=== PATIENT | male | born 1970 | race Two or more races ===

== ENCOUNTER 2025-01-08 10:08 | Inpatient (IN) | payer OTHER, SELFPAY ==
--- NOTE | 2025-01-08 16:03 | PC.NURSE ---
Resident came in accompanied by EMS/paramedics on [facility] , his eyes was open and lethargic, resident V/S before transfer @0800 was axilary temp.36.9, HR, 94, resp.rate 23, saturation rate 98% BP.100/55, and resident arrived 1008, v/s was temp. 97.3, RR, 19, Pulse 46, saturation rate 77-82, was notified and order to transfer to [facility].
--- NOTE | 2025-01-08 18:35 | PC.NURSE ---
Admitted resident from [facility] in [place] at around 10:08. Awake and looks lethargic. This ghost writer was trying to talk to the resident by calling his first name but doesn't track at all. While doing assessment, noticed that resident became more lethargic. Resident on mechanical ventilator, unable to obtain saturation, suctioned as needed. V/S were take as follows: 63/33, 19, 46. RT came in and increased resident's FIO2 at 100% and noted to have O2 saturation of 77%-82% afterwards. Charge nurse notified Dr Meyer and ordered to transfer resident to ER. Resident was sent out to ER at around 11:54 . Family was notified by the charge nurse.
== END 2025-01-08 10:29 | disposition other institution (70) | DRG 42 ==
PROVIDERS: Admitting Provider Specialist; Visit Provider Specialist
DX: G12.21 Amyotrophic lateral sclerosis (principal); Z86.73 Personal history of transient ischemic attack (TIA), and cerebral infarction without residual deficits; I25.2 Old myocardial infarction; J96.10 Chronic respiratory failure, unspecified whether with hypoxia or hypercapnia; Z93.1 Gastrostomy status; Z86.718 Personal history of other venous thrombosis and embolism; Z79.01 Long term (current) use of anticoagulants
CPT/HCPCS: 36600; 80053; 82803; 85025; 87077; 87186; 87205; 93005

== ENCOUNTER 2025-01-08 11:59 | Emergency (ER) | payer OTHER, SELFPAY ==
[2025-01-08] VITALS (72 sets, daily range): BP systolic 62–124; BP diastolic 35–80; PULSE 46–109; RESP 18–35; TEMP 33.3–36.8; O2SAT 91–100; BMI 16.6
--- NOTE | 2025-01-08 10:29 | EKG_ITS ---
[facility] Test Date: 2025-01-08 Pat Name: HYUN RAMIREZ Department: Room: [facility] Gender: Male Builder'S Labourer: : 1970 Requested By: Sushant Meyer Order Number: [id number] Reading MD: Sushant Meyer Measurements Intervals [place] Rate: 64 P: 57 WV: 152 QRS: 79 QRSD: 126 T: 86 QT: 395 QTc: 408 Interpretive Statements SINUS RHYTHM POSSIBLE RIGHT VENTRICULAR CONDUCTION DELAY [RSR (QR) IN V1/V2] NONSPECIFIC T-WAVE ABNORMALITY No previous ECG available for comparison /store/S0/[id number]
[2025-01-08 10:53] LABS: Base Excess 4 (-3-3); HCO3 32 mEq/L (20-26); Inspired Oxygen, FIO2 40 %; O2 Saturation 91 % (91-98); PCO2 63 mmHg (32.0-48.0); PO2 64 mmHg (83-108); pH, Arterial 7.31 (7.35-7.45)
[2025-01-08 10:54] LABS: Allen Test Performed/OK; Puncture Site Left Radial
[2025-01-08] MEDS: SODIUM CHLORIDE 0.9% 1000 ML 1,000 ML 999 ML IV (12:05)
--- NOTE | 2025-01-08 12:13 | XR_ITS ---
EXAMINATION: AP chest single view TECHNIQUE: AP portable supine chest single view Date and time: January 08, 2025, 12:31 p.m. INDICATIONS: Shortness of breath today FINDINGS: COPD with significant hyperexpansion Extensive bilateral pneumonia severe at the lung bases Cavitary appearing parenchymal disease in the right upper lobe Tracheostomy tube tip 7.4 cm above rafael. Normal heart size Right arm dual-lumen PICC line tip SVC IMPRESSION: COPD Extensive bilateral pneumonia, cavitary in the right upper lobe
[2025-01-08] MEDS: Norepinephrine/D5W 8mg/250ml 8 MG/250 ML BAG 5.358 MG IV (12:15)
[2025-01-08 12:43] LABS: Lactate (Lactic Acid) 1.8 mMol/L (0.4-2.0)
[2025-01-08 12:49] LABS: Basophils # (Auto) 0.1 Thou/mm3 (0.0-0.2); Basophils % (Auto) 0 % (0-2.5); Eosinophils # (Auto) 0.0 Thou/mm3 (0.0-0.5); Eosinophils % (Auto) 0 % (0-10); Hematocrit 20.7 % (41.0-53.0); Immature Granulocytes Auto 0.27 Thou/mm3 (0.00-0.00); Lymphocytes # (Auto) 1.2 Thou/mm3 (1.0-4.8); Lymphocytes % (Auto) 7 % (10-50); Mean Corpuscular HGB Conc 32.9 g/dl (31.0-37.0); Mean Corpuscular Hemoglobin 27.9 pg (25.0-35.0); Mean Corpuscular Volume 85 fL (80-100); Monocytes # (Auto) 0.3 Thou/mm3 (0.0-0.8); Monocytes % (Auto) 2 % (0-12); Neutrophils # (Auto) 15.8 Thou/mm3 (1.8-7.7); Neutrophils % (Auto) 90 % (37-80); Nucleated Red Blood Cell # 0.19 Thou/mm3 (0.00-0.00); Nucleated Red Blood Cell % 1 /100 WBC (0); Platelet Count 424 Thou/mm3 (140-440); RDW Standard Deviation 45.3 fL (35.1-43.9); Red Blood Count 2.44 Miln/mm3 (4.50-5.90); White Blood Count 17.6 Thou/mm3 (3.8-10.6)
[2025-01-08 12:57] LABS: Hemoglobin 6.8 g/dL (13.5-16.0)
[2025-01-08 13:03] LABS: D-Dimer 2950 ng/mL (<600)
--- NOTE | 2025-01-08 13:03 | PD.EDADULT ---
ED General RME/HPI General Chief complaint: Altered Mental Status Stated complaint: SOB Time Seen by Provider: 01/08/25 12:04 Arrival date/time: 01/08/25 11:59 RME / HPI RME / HPI narrative: Jostin is a 54 y/o male with PMHx of ALS,HFrEF (? EF ~10%), cardiac arrest, pulmonary embolus, Afib (was on Eliquis), respiratory failure s/p trachestomy, PEG placement, CVA (L MCA) who comes in for evaluation after being sent from [place] to [facility] subacute. Of note patient had extensive stay at [facility] in which he had had multiple events including cardiac arrest, pulmonary embolus, CVA, tracheostomy and PEG placement. According to family, patient was living in [place] and had some caretakers, however was able to to carry out living activities. Family also wants full treatment for patient at this time. Patient came into the ED hypotensive, MAP 45. Patient was post to get blood transfusion prior to her arrival, however is unsure if he on that. History limited at this time and is reviewed from paper chart. Related Data Previous Rx's ?Medication ?Instructions ?Recorded Meropenem 1 g IV BID for infection in blood 01/08/25 7 days amiodarone 200 mg tablet 200 mg G-tube BID #60 tabs 01/08/25 aspirin 81 mg chewable tablet 81 mg G-tube QDAY to prevent blood 01/08/25 clots #30 tabs bisacodyl 10 mg rectal suppository 10 mg MA PRN PRN No BM Per Bowel 01/08/25 (Dulcolax (bisacodyl)) Management Protocol 366 days #12 ea enoxaparin 40 mg/0.4 mL 40 mg (0.4 mL) SCi BID 14 days 01/08/25 subcutaneous syringe #5.6 mL famotidine 20 mg tablet 20 mg G-tube DAILY for Gerd #30 01/08/25 tabs ipratropium 0.5 mg-albuterol 3 mg 3 ml INH Q2HR PRN Wheezing 30 days 01/08/25 (2.5 mg base)/3 mL nebulization #90 mL soln magnesium hydroxide 400 mg/5 mL 30 ml G-tube PRN PRN Constipation 01/08/25 oral suspension (Milk of Magnesia) 366 days #355 mL metoprolol tartrate 50 mg tablet 50 mg G-tube BID Hpertension #60 01/08/25 tabs polyethylene glycol 3350 17 gram 17 g G-tube PRN PRN No BM Per 01/08/25 oral powder packet Bowel Management Protocol 366 days #14 ea sodium phosphates 19 gram-7 133 ml MA PRN PRN No BM Per Bowel 01/08/25 gram/118 mL enema (Fleet Enema) Management Protocol 366 days #133 mL Allergies Allergy/AdvReac Type Severity Reaction Status Date / Time No Known Allergies Allergy Verified 01/08/25 12:07 Review of Systems Review of Systems Narrative Review of Systems: ROS limited at this time as patient has tracheostomy ED Exam Narrative Physical exam: General: AAOx1, tracheostomy, anorexic HEENT: Pinpoint pupils Cardiovascular: S1, S2, radial pulses +2 bilat, RRR Pulmonary: Mechanical breath sounds, tidal volume 450, respiratory rate 28, FiO2 of 70 GI: PEG tube Extremities: No presence of trace or pitting edema in lower extremities bilaterally, dorsalis pedis pulses +2 bilaterally Skin: Area of superficial area exposed of skin on back, linear and covered in bandage. Neuro: AAOx1, pinpoint pupils Course Quality Measures none Orders Category Date Time Status Bedside COVID-19 Antigen Test NOW Care 01/08/25 12:[address] Screening NOW Care 01/08/25 14:11 Active EKG (ED ONLY) *Do not use* NOW Care 01/08/25 12:04 Completed Bonner [Urinary Catheter] QS Care 01/08/25 13:11 Active Initiate Warming Therapy X1 Care 01/08/25 13:52 Active Insert IV NOW Care 01/08/25 12:04 Active May Access Central Line NOW Care 01/08/25 12:30 Ordered Post Transfusion H&H PRN Care 01/08/25 13:02 Active Transfuse,blood/blood products NOW Care 01/08/25 13:02 Active Consult to Design Engineering Intern Stat Cons 01/08/25 16:57 Ordered Referral - Steward Dishwasher Stat Cons 01/08/25 16:[address] angio chest Stat Exams 01/08/25 14:[address] head/brain wo con Stat Exams 01/08/25 14:31 Completed EKG (ED Only) Stat Exams 01/08/25 12:04 Ordered XR chest 1V portable Stat Exams 01/08/25 12:13 Completed ABG [Arterial Blood Gas] Stat Lab 01/08/25 13:09 Completed ABG [Arterial Blood Gas] Stat Lab 01/08/25 14:47 Completed ABG [Arterial Blood Gas] Stat Lab 01/08/25 16:17 Completed Blood Culture (Lab) Stat Lab 01/08/25 12:24 Received CBC Stat Lab 01/08/25 12:24 Completed CMP [Comprehensive Metabolic Panel] Stat Lab 01/08/25 12:24 Completed D-Dimer Stat Lab 01/08/25 12:24 Completed Influenza A & B Rapid Panel Stat Lab 01/08/25 13:59 Completed Lactic Acid [Lactate (Lactic Acid)] Stat Lab 01/08/25 12:24 Completed Lipase Stat Lab 01/08/25 12:24 Completed Mag [Magnesium] Stat Lab 01/08/25 12:24 Completed Path Review Blood Smear Stat Lab 01/08/25 12:24 Completed Procalcitonin Stat Lab 01/08/25 12:24 Completed Troponin I Stat Lab 01/08/25 12:24 Completed Type and Screen Stat Lab 01/08/25 13:04 Completed Urinalysis, C/S if Indicated Stat Lab 01/08/25 14:00 Completed prbc [Red Blood Cells] Stat Lab 01/08/25 13:04 Completed ALBUTEROL RT 0.5ml [Proventil Rt 0.5ml] Med 01/08/25 15:03 Discontinued 5 mg .ROUTE .STK-MED ONE ALBUTEROL RT 0.5ml [Proventil Rt 0.5ml] Med 01/08/25 15:03 Discontinued 5 mg INH X1 ONE Hydrocortisone Sod Succ Inj [SoluCORTEF Inj] Med 01/08/25 21:00 Active 50 mg IV Q6HR Hydrocortisone Sod Succ Inj [SoluCORTEF Inj] Med 01/08/25 15:14 Discontinued 50 mg IV X1 ONE Meropenem Inj [Merrem Inj] 1,000 mg Med 01/08/25 15:21 Discontinued SODIUM CHLORIDE 0.9% (Popper) [Ns 0.9% (P)] 50 ml IV X1 Norepinephrine/D5W 8mg/250ml [Levophed in D5W 8mg/250ml Med 01/08/25 12:11 Discontinued ] 8 mg in 250 ml IV 0.05 mcg/kg/min Norepinephrine/D5W 8mg/250ml [Levophed in D5W 8mg/250ml Med 01/08/25 12:19 Active ] 8 mg in 250 ml IV 0.05 mcg/kg/min Ringers Lactated 1000 ml [Lactated Ringers] 1,000 ml Med 01/08/25 12:04 Discontinued IV 999 mls/hr Sodium Bicarb 8.4% SYR Med 01/08/25 13:29 Discontinued 50 ml IV X1 ONE Sodium Chloride 0.9% 1000 ml [Ns] 1,000 ml Med 01/08/25 12:40 Discontinued IV 999 mls/hr Sodium Chloride Rt Audrey 0.9% [NS Rt Audrey 0.9%] Med 01/08/25 15:03 Active 3 ml INH PRN PRN Vancomycin Pharmacy to Dose Med 01/08/25 15:30 Active 1 each IV QDAY Vancomycin/Water 1250 mg Ivpb 250 ml Med 01/08/25 15:30 Discontinued IV X1 Vasopressin in Ns Ivpb [Vasostrict/Ns Ivpb] Med 01/08/25 15:13 Active 20 unit in 100 ml IV 0.03 unit/min Volume Ventilator Routine RT 01/08/25 12:08 Active Vital Signs Vital signs: Vital Signs Pulse Rate 48 L 01/08/25 12:07 Respiratory Rate 22 H 01/08/25 12:07 Blood Pressure 69/35 L 01/08/25 12:07 Pulse Oximetry (%) 91 L 01/08/25 12:07 Oxygen Delivery Method Mechanical Ventilation 01/08/25 12:07 Fraction of Inspired Oxygen 45 01/08/25 12:07 Discharge Plan Plan Patient Disposition: [facility] Pt Being Transferred to: [facility] Service Needed for Transfer: Neurosurgery Discharge Disposition comment: Acute Hemorrhage seen on CT Prescriptions/Referrals Prescriptions/Med Rec: No Action famotidine 20 mg tablet 20 mg G-tube DAILY Qty: 30 11RF metoprolol tartrate 50 mg tablet 50 mg G-tube BID Qty: 60 11RF Label Comments: Hold for sbp less than 110 and HR less than 60 aspirin 81 mg tablet,chewable 81 mg G-tube QDAY Qty: 30 11RF Meropenem 1 g IV BID 7 Days 0RF ipratropium-albuterol 0.5 mg-3 mg(2.5 mg base)/3 mL solution for nebulization 3 ml INH Q2HR PRN (Reason: Wheezing) 30 Days Qty: 90 0RF polyethylene glycol 3350 17 gram powder in packet 17 g G-tube PRN PRN (Reason: No BM Per Bowel Management Protocol) 366 Days Qty: 14 0RF Label Comments: Administer as needed if 2nd round bowel protocol ineffective. Rx Instructions: Mix with 4oz of water before giving. Hold tube feeding for 30 minutes after administration. Notify provider if no results from Miralax. magnesium hydroxide [Milk of Magnesia] 400 mg/5 mL suspension 30 ml G-tube PRN PRN (Reason: Constipation) 366 Days Qty: 355 0RF Rx Instructions: CONC: 400MG/5ML bisacodyl [Dulcolax (bisacodyl)] 10 mg suppository 10 mg MA PRN PRN (Reason: No BM Per Bowel Management Protocol) 366 Days Qty: 12 0RF Rx Instructions: Administer as needed on 6th shift, if MOM ineffective. Fleet Enema 19-7 gram/118 mL enema 133 ml MA PRN PRN (Reason: No BM Per Bowel Management Protocol) 366 Days Qty: 133 0RF Label Comments: If Dulcolax is ineffective on 3rd day / 7th shift, give Fleets enema per Bowel Management Protocol. Notify MD if no results from Enema. amiodarone 200 mg tablet 200 mg G-tube BID Qty: 60 11RF Rx Instructions: *Hold if HR less than 60, or SBP less than 100 enoxaparin 40 mg/0.4 mL syringe 40 mg SCi BID 14 Days Qty: 5.6 0RF Referrals: No Primary/Family,Physician [Primary Care Provider] - In 1 week Problem List Clinical Impression: Acute intracerebral hemorrhage Patient/Caregiver Discharge Instructions Print Language: [place] Stand Alone Forms: Cathy Award Info., Patient Portal Info Letter MDM Clinical Information Other: 1200: Sepsis alert, initiated broad labs, chest x-ray, gave 1 L fluid and started IV Levophed due to hypotension 1245: Initiated blood transfusion patient's hemoglobin is 6.8. Ordered 2 units of PRBCs 1310: Ordered additional ABG and change ventilator settings to respiratory of 28 and tidal volume 455 as patient had ABG of pCO2 of 120 and pH of 7 1445: Consulted ICU who came to evaluate patient. Ordered head CT and chest CTA for workup of pulmonary emboli and stroke/hemorrhage. Initiated Meropenem IV and Vancomycin IV. Repeat ABG shows pH 7.08, pCO2 108. 1600: CT head shows acute hemorrhage in the left MCA, chest CTA shows pulmonary emboli and filling defect of RLL. Unsure of patient's last known well time and thus will not call stroke alert. ABG shows pH 7.16, PCO2 85. Pt will need to stop taking any blood thinners, including his Lovenox 40 mg BID in the setting of acute hemorrhage (hemorrhagic conversion of his infarct L MCA) 1655: Spoke with emergency medicine physician at [facility], Dr. Ann, who accepts patient for admission for neurosurgical evaluation. 1715: Spoke with family member, Natty, sister, who provides consent for transfer and for neurosurgical intervention at [facility]. Medication Administration(s) Medication Administration History Hydrocortisone Sodium Succinate (Hydrocortisone Sod Succ Inj 100 Mg 2 Ml Vial) 50 mg IV Q6HR EDNA Stop: 02/07/25 20:59 Norepinephrine/Dextrose (Levophed In D5w 8mg/250ml) 8 mg in 250 mls @ 5.358 mls/hr IV .Q24H PRN; Protocol PRN Reason: PER PROTOCOL Stop: 02/07/25 12:18 Last Titration: 01/08/25 16:00 Dose: 0.33 mcg/kg/min, 35.363 mls/hr Documented By: Titration: 01/08/25 15:10 Dose: 0.33 mcg/kg/min, 35.363 mls/hr Documented By: Titration: 01/08/25 15:05 Dose: 0.33 mcg/kg/min, 35.363 mls/hr Documented By: Titration: 01/08/25 15:00 Dose: 0.31 mcg/kg/min, 33.22 mls/hr Documented By: Titration: 01/08/25 14:55 Dose: 0.29 mcg/kg/min, 31.077 mls/hr Documented By: Titration: 01/08/25 14:50 Dose: 0.27 mcg/kg/min, 28.934 mls/hr Documented By: Titration: 01/08/25 14:00 Dose: 0.25 mcg/kg/min, 26.79 mls/hr Documented By: Titration: 01/08/25 13:40 Dose: 0.25 mcg/kg/min, 26.79 mls/hr Documented By: Titration: 01/08/25 13:35 Dose: 0.25 mcg/kg/min, 26.79 mls/hr Documented By: Titration: 01/08/25 13:05 Dose: 0.23 mcg/kg/min, 24.647 mls/hr Documented By: Titration: 01/08/25 13:00 Dose: 0.23 mcg/kg/min, 24.647 mls/hr Documented By: Titration: 01/08/25 12:55 Dose: 0.21 mcg/kg/min, 22.504 mls/hr Documented By: Titration: 01/08/25 12:50 Dose: 0.19 mcg/kg/min, 20.361 mls/hr Documented By: Titration: 01/08/25 12:45 Dose: 0.17 mcg/kg/min, 18.218 mls/hr Documented By: Titration: 01/08/25 12:40 Dose: 0.15 mcg/kg/min, 16.074 mls/hr Documented By: Titration: 01/08/25 12:35 Dose: 0.13 mcg/kg/min, 13.931 mls/hr Documented By: Titration: 01/08/25 12:30 Dose: 0.11 mcg/kg/min, 11.788 mls/hr Documented By: Titration: 01/08/25 12:25 Dose: 0.09 mcg/kg/min, 9.645 mls/hr Documented By: Titration: 01/08/25 12:20 Dose: 0.07 mcg/kg/min, 7.501 mls/hr Documented By: Admin: 01/08/25 12:15 Dose: 0.05 mcg/kg/min, 5.358 mls/hr Documented By: MELVINA Vasopressin/Sodium Chloride (Vasostrict/Ns Ivpb) 20 unit in 100 mls @ 9 mls/hr IV .Q11H7M PRN; Protocol PRN Reason: PER PROTOCOL Stop: 02/07/25 15:12 Pharmacy Consult (Vancomycin Pharmacy To Dose 1 Each Each) 1 each IV QDAY [facility] Stop: 02/07/25 15:29 Sodium Chloride (Sodium Chloride Rt Audrey 0.9% 3 Ml Nebu) 3 ml INH PRN PRN PRN Reason: SOLN Stop: 02/07/25 15:02 Discontinued Medications Albuterol (Albuterol Rt 2.5 Mg/0.5 Ml Nebu) 5 mg INH X1 ONE Stop: 01/08/25 15:04 Last Admin: 01/08/25 15:09 Dose: 5 mg Documented By: VIV Albuterol (Albuterol Rt 2.5 Mg/0.5 Ml Nebu) Confirm Administered Dose 5 mg .ROUTE .STK-MED ONE Stop: 01/08/25 15:04 Last Admin: 01/08/25 15:26 Dose: Not Given Documented By: MELVINA Non-Admin Reason: Duplicate Medication on eMAR Hydrocortisone Sodium Succinate (Hydrocortisone Sod Succ Inj 100 Mg 2 Ml Vial) 50 mg IV X1 ONE Stop: 01/08/25 15:15 Last Admin: 01/08/25 15:33 Dose: 50 mg Documented By: MELVINA Lactated Ringer's (Lactated Ringers) 1,000 mls @ 999 mls/hr IV .Q1H1M ONE Stop: 01/08/25 13:04 Last Admin: 01/08/25 12:37 Dose: Not Given Documented By: MELVINA Non-Admin Reason: Cancelled by Provider Norepinephrine/Dextrose (Levophed In D5w 8mg/250ml) 8 mg in 250 mls @ 5.358 mls/hr IV .Q24H PRN; Protocol PRN Reason: PER PROTOCOL Stop: 02/07/25 12:10 Sodium Chloride (Ns) 1,000 mls @ 999 mls/hr IV .Q1H1M ONE Stop: 01/08/25 13:40 Last Infusion: 01/08/25 13:08 Dose: Infused Documented By: Admin: 01/08/25 12:05 Dose: 999 mls/hr Documented By: MELVINA Meropenem 1,000 mg/ Sodium (Chloride) 50 mls @ 100 mls/hr IV X1 ONE Stop: 01/08/25 15:22 Last Infusion: 01/08/25 17:02 Dose: Infused Documented By: Admin: 01/08/25 16:05 Dose: 100 mls/hr Documented By: Vancomycin HCl (Vancomycin/Water 1250 Mg Ivpb) 250 mls @ 120 mls/hr IV X1 ONE Stop: 01/08/25 17:34 Sodium Bicarbonate (Sodium Bicarb Inj 8.4% Syr 50 Ml Syringe) 50 ml IV X1 ONE Stop: 01/08/25 13:30 Last Admin: 01/08/25 13:43 Dose: 50 ml Documented By: MELVINA Diagnosis Diagnoses ruled out and/or further discussions: Septic shock, cardiogenic shock, intracranial hemorrhage, PE
[2025-01-08 13:12] LABS: Base Excess -3 (-3-3); HCO3 29 mEq/L (20-26); Inspired Oxygen, FIO2 55 %; O2 Saturation 95 % (91-98); PCO2 120 mmHg (32.0-48.0); PO2 103 mmHg (83-108)
[2025-01-08 13:13] LABS: Alanine Aminotransferase 11 U/L (10-49); Albumin, Serum 2.3 gm/dL (3.5-5.0); Albumin/Globulin Ratio 0.9 (1.2-2.2); Alkaline Phosphatase 121 U/L (46-116); Anion Gap 9 (7-16); Aspartate Amino Transferase 14 U/L (0-34); BUN/Creatinine Ratio 105 Ratio (12-20); Bilirubin,Total 0.2 mg/dL (0.3-1.2); Blood Urea Nitrogen 21 mg/dL (9-23); Calcium 7.8 mg/dL (8.3-10.6); Calcium (Corrected) 9.2 mg/dL (8.5-10.1); Carbon Dioxide 30.1 mMol/L (20.0-31.0); Chloride 113 mMol/L (98-107); Creatinine (Component) 0.2 mg/dL (0.6-1.3); Estimated Creatinine Clearance 349.3 mL/min (>60); Globulin 2.5 gm/dL (2.3-3.5); Glucose 118 mg/dL (74-106); Lipase 24 U/L (12-53); Magnesium 2.4 mg/dL (1.6-2.6); Osmolality,Calculated 305 (275-295); Potassium 4.0 mMol/L (3.4-5.1); Procalcitonin 3.24 ng/ml (0.0-0.49); Sodium 152 mMol/L (136-145); Total Protein 4.8 gm/dL (5.7-8.2); Troponin I < 0.020 ng/mL (0.0-0.045); eGFR > 60 See Note
--- NOTE | 2025-01-08 13:18 | PC.NURSE ---
I CALLED AND SPOKE TO THIS PT SISTER RAMON, WHO HAVE CONSENT FOR BLOOD TRANSFUSION FOR THIS PT. PT SISTER RAMON STATED, DO EVERYTHING TO SAVE HIS LIFE. GEETA PEÑA WAS A WITNESS TO THIS CONSENT
[2025-01-08 13:22] LABS: Allen Test Performed/OK; Puncture Site Right Brachial; pH, Arterial 7.00 (7.35-7.45)
--- NOTE | 2025-01-08 13:30 | PC.NURSE ---
UNABLE TO DUE NIHSS DUE PT NOT ABLE TO RESPOND, PT GCS 3
[2025-01-08] MEDS: Sodium Bicarb Inj 8.4% SYR 50 ML SYRINGE IV (13:43)
--- NOTE | 2025-01-08 14:11 | XR_ITS ---
Examination: CTA chest with intravenous contrast 2-D reconstructions 3-D reconstructions, vascular Date and time of exam: January 08, 2025, 1559 hours INDICATIONS: Shortness of breath today, nonresponsive patient CTDI: vol (mGy) 13.9 DLP: (mGycm) 646 Technique: Multiple axial sections of the thorax have been obtained. 3 mm slice thickness, from below the hemidiaphragms to above the apices of the lungs. Mediastinal and lung density settings have been obtained. 2-D sagittal and coronal reconstructions. 3-D angiographic renderings, 3-D volume renderings, 3D post processing, vascular maximum intensity projections obtained. Contrast administered is 100 cc Isovue-370. Low dose protocols were performed. One or more of the following dose reduction techniques were used; automated exposure control, adjustment of the mA and/or KV according to patient size, use of iterative reconstruction technique. Findings: No thoracic aortic aneurysmal dilatation Positive for pulmonary artery emboli in lower lobe right pulmonary artery branches, for instance axial image 141 through 147 Hilar lymphadenopathy Very large multiple cavitary lesions in both upper lobes with extensive soft nodular infiltrates throughout both lungs, more dense consolidation and atelectasis at the left lung base with small left pleural effusion Masslike area in the right lower lobe, axial image 273 which extends to the right hilum measuring at least 7.6 x 5.1 cm, consider pulmonary neoplasm Tracheostomy tube satisfactory position No visualized liver or splenic lesion Contracted gallbladder No pancreatic mass No hydronephrosis Moderate osteopenia IMPRESSION: Positive for small pulmonary artery emboli in right lower lobe pulmonary artery branches Hilar lymphadenopathy Extensive cavitary lesions in both upper lobes with diffuse soft nodular infiltrates throughout both lungs, differential would include active tuberculosis Masslike area in the right lower lobe 7.6 x 5.1 cm, rule out pulmonary neoplasm
[2025-01-08 14:15] LABS: Collection Type, Urine Catheter
[2025-01-08 14:31] LABS: Bilirubin,Urine Negative (Negative); Blood,Urine Negative (Negative); Color,Urine Yellow (Lt Yel-Yel); Culture Indicated,Urine Not Indicated; Glucose, Urine Negative (Negative); Ketones,Urine Negative (Negative); Leukocyte Esterase,Urine Negative (Negative); Nitrite,Urine Negative (Negative); PH,Urine 6.0 (5.0-7.0); Protein,Urine 1+ (Neg - Trace); RBC,Urine 2 /hpf (0-3); Specific Gravity,Urine 1.017 (1.001-1.035); Squamous Epithelial Cell,Urine < 1 /hpf (0-5); Urobilinogen,Urine Negative mg/dL (0.0-1.0); WBC,Urine 9 /hpf (0-5)
--- NOTE | 2025-01-08 14:31 | XR_ITS ---
Examination: CT brain head without contrast. 2-D sagittal coronal reconstructions Date and time of exam: January 08, 2025, 1449 hours INDICATIONS: Onset altered mental status today CTDI: vol (mGy): 47.8 DLP: (mGycm): 969 Technique: Multiple CT axial sections of the brain have been obtained, 5 mm slice thickness. Contrast has not been administered. 2-D sagittal, coronal reconstructions have been obtained Low dose protocols were performed. One or more of the following dose reduction techniques were used; automated exposure control, adjustment of the mA and/or KV according to patient size, use of iterative reconstruction technique. Findings: Large acute hemorrhagic infarct in distribution left middle cerebral artery Ventricles are not enlarged Edema in particular is prominent in the left frontal lobe No shift of the frontal horns Fourth ventricle is midline Cranial vault intact IMPRESSION: Large acute hemorrhagic infarct in distribution left middle cerebral artery
[2025-01-08 14:42] LABS: Clarity,Urine Hazy (Clear/Hazy)
[2025-01-08 14:46] LABS: Influenza A Ag Negative
[2025-01-08 14:47] LABS: Influenza B Ag Negative
[2025-01-08 14:52] LABS: Base Excess 1 (-3-3); HCO3 32 mEq/L (20-26); Inspired Oxygen, FIO2 60 %; O2 Saturation 95 % (91-98); PCO2 108 mmHg (32.0-48.0); PO2 95 mmHg (83-108)
[2025-01-08 14:56] LABS: Allen Test Performed/OK; Puncture Site Right Brachial; pH, Arterial 7.08 (7.35-7.45)
[2025-01-08] MEDS: ALBUTEROL RT 2.5 MG/0.5 ML NEBU 5 MG INH (15:09)
[2025-01-08] MEDS: HYDROCORTISONE SOD SUCC INJ 100 MG 2 ML VIAL 50 MG IV (15:33)
[2025-01-08 15:57] LABS: Path Review Blood Smear Sent to Pathologist
[2025-01-08] MEDS: MEROPENEM INJ 1,000 MG in SODIUM CHLORIDE 0.9% (Popper) 50 ML 100 MG IV (16:05)
[2025-01-08 16:19] LABS: Base Excess 1 (-3-3); HCO3 31 mEq/L (20-26); Inspired Oxygen, FIO2 60 %; O2 Saturation 98 % (91-98); PCO2 85 mmHg (32.0-48.0); PO2 100 mmHg (83-108)
[2025-01-08 16:20] LABS: Allen Test Performed/OK; Puncture Site Right Brachial; pH, Arterial 7.16 (7.35-7.45)
--- NOTE | 2025-01-08 16:31 | ESCONSULT_ITS ---
<Statement entered by Santiago Cali MD - 01/08/25 19:44> Patient seen and examined at bedside. I discussed and supervised with the general intern physician who took care of this patient. I personally saw and examined the patient. I agree with most of the assessment and plan. ICU team was consulted for potential admission due to shock requiring pressor support. 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 Patient able to provide history, family at bedside, history taken from chart review. Patient had MAP approximately 45 on arrival to subacute, transferred to ED for emergency treatment. Initial labs show leukocytosis, anemia with hemoglobin 6.8 (PRBC ordered), hyponatremia, Pro- Rodrick 3.24. Initial ABG showed pH 7.31, pCO2 63. Repeat ABG showed pH 7.0, pCO2 120. Vent settings adjusted. Levophed initiated by ED, required rapid up titration to maintain MAP. Vasopressin and steroids added. Of note, patient was receiving therapeutic Lovenox due to upper extremity DVTs. Head CT and CTA ordered. Head CT showed acute hemorrhagic infarct, overlaying previous ischemic infarcts, likely hemorrhagic conversion in setting of Lovenox treatment. As such, ICU team is unable to care for this patient at this facility, recommend initiating transfer to neurosurgical center. We appreciate the consult and opportunity to participate in the care of this patient. Plan of care discussed with attending Dr. Clements. Santiago Cali MD PGY-2 HPI Data of Consult Patient: new to practice Consult date: 01/08/25 Attending Provider: Gina Clements Primary Care Provider: Physician No Primary/Family Consult Narrative Reason for consult: Altered Mental Status History of present illness: Jostin is a 54 y/o male with PMHx of ALS, HFrEF (? EF ~10%), cardiac arrest, DVT of upper extremity, pulmonary embolus, Afib (was on Eliquis), respiratory failure s/p trachestomy, PEG placement, CVA (L MCA), bedbound who comes in for evaluation after being sent from [place] to [facility] subacute. Of note patient had extensive stay at [facility] in which he had had multiple events including cardiac arrest, pulmonary embolus, CVA, tracheostomy and PEG placement. According to family, patient was living in [place] and had some caretakers, however was able to to carry out living activities. Family also wants full treatment for patient at this time. Patient came into the ED hypotensive, MAP 45. Patient received 1 unit prbc 01/07 for hgb 7.2 ->6.9. Was given 2 units prbc's at [facility] for hgb 6.8. History was take from paper chart. Patient's tracheostomy was done 12/15, PEG tube noted to be in place at least by 12/10. During the time he was in [facility], he was able to track with his eyes and was able to follow commands at some point. Past Medical History: above Family History: n/a Surgical History: n/a Social History: alcohol & cigarette use, per paper chart review Current Medications: (Source: ) Allergies: No known drug allergies ED Course: -Initial vitals were Temp 95.9 F, BP 62/37, HR 66, RR 22, 91% O2 on mechanical ventilation (FIO2 45%) -Labs significant for WBC 17.6, Hgb 6.8, D-dimer 2950, ABG pH 7.00, pco2 120, Sodium 152, Chloride 113, ProCal 3.24. -Imaging included CXR showing Extensive bilateral pneumonia, cavitary in the right upper lobe; EKG sinus rhythm; Chest CTA showing small pulmonary artery emboli in right lower lobe pulmonary artery branches, Hilar lymphadenopathy, Extensive cavitary lesions in both upper lung lobes, Masslike area 7.6 x 5.1 cm in R Lower lung lobe. Head CT signficant for Large acute hemorrhagic infarct in distribution L MCA; Edema in particular is prominent in the left frontal lobe -In the ED, patient was given 1L NS, Levophed ggt, Sodium bicarb 50 ml IV x1, albuterol 5 mg inh x1, hydrocortisone 50 mg IV x1, Meropenem 1,000 mg IV x1 -Patient was found to have intracerebral hemorrhage on CT, transferred to higher level of care. Review of Systems Review of systems otherwise negative except what is mentioned above. cc:: cc: Exam Vital Signs Temp Pulse Resp BP Pulse Ox O2 Del Method FiO2 98.2 F 98 33 H 91/53 L 98 Mechanical Ventilation 60 01/08/25 16:04 01/08/25 16:04 01/08/25 16:04 01/08/25 16:04 01/08/25 16:04 01/08/25 16:04 01/08/25 16:04 Narrative Exam General: GCS 3t, tracheostomy, anorexic Skin: Warm, dry, intact, no obvious rash. Dressings on back for pressure prophylaxis, 1 wound dressing for stage 1 wound. HENT: NCAT. Pinpoint Pupils. External ears normal. No rhinorrhea. Moist mucous membranes Cardiovascular: Regular rate and rhythm, no murmur, +S1/S2. Respiratory: Mechanically ventilated. Coarse lung sounds bilaterally. GI: Soft, nontender, non-distended. Feeding tube in place. No guarding or rebound tenderness. : No suprapubic tenderness. No flank tenderness bilaterally. Extremities: PICC line R arm in place. No edema, no cyanosis, no clubbing. Extremity pulses present Neuro: GCS 3t, pinpoint pupils Results Labs 01/08/25 12:24 01/08/25 12:24 Labs: Short CBC 01/08/25 Range/Units 12:24 WBC 17.6 H (3.8-10.6) Thou/mm3 Hgb 6.8 L* (13.5-16.0) g/dL Hct 20.7 L* (41.0-53.0) % Plt Count 424 (140-440) Thou/mm3 BMP 01/08/25 12:24 Sodium 152 H Potassium 4.0 Chloride 113 H Carbon Dioxide 30.1 BUN 21 Creatinine 0.2 L Glucose 118 H Calcium 7.8 L Cardiac Enzymes 01/08/25 Range/Units 12:24 Troponin I < 0.020 (0.0-0.045) ng/mL Liver Function 01/08/25 Range/Units 12:24 Total Bilirubin 0.2 L (0.3-1.2) mg/dL AST 14 (0-34) U/L ALT 11 (10-49) U/L Alkaline Phosphatase 121 H (46-116) U/L Albumin 2.3 L (3.5-5.0) gm/dL Urine 01/08/25 Range/Units 14:00 Urine Color Yellow (Lt Yel-Yel) Urine Clarity Hazy (Clear/Hazy) Urine pH 6.0 (5.0-7.0) Ur Specific [place] 1.017 (1.001-1.035) Urine Protein 1+ A (Neg - Trace) Urine Glucose (UA) Negative (Negative) ABG Interpretation ABG results: 01/08/25 01/08/25 01/08/25 13:09 14:47 16:17 ABG pH 7.00 L* D 7.08 L* 7.16 L* ABG pCO2 120 H* D 108 H* D 85 H* D ABG pO2 103 D 95 100 ABG HCO3 29 H 32 H 31 H ABG O2 Saturation 95 95 98 ABG Base Excess -3 1 1 Quality Measures Quality Measures none (Patient with acute cranial hemorrhagic infarct) Medications Home Medications and Allergies Allergies Allergy/AdvReac Type Severity Reaction Status Date / Time No Known Allergies Allergy Verified 01/08/25 12:07 Visit Medications Hydrocortisone Sodium Succinate (Hydrocortisone Sod Succ Inj 100 Mg 2 Ml Vial) 50 mg IV Q6HR EDNA Stop: 02/07/25 20:59 Norepinephrine/Dextrose (Levophed In D5w 8mg/250ml) 8 mg in 250 mls @ 5.358 mls/hr IV .Q24H PRN; Protocol PRN Reason: PER PROTOCOL Stop: 02/07/25 12:18 Last Titration: 01/08/25 15:10 Dose: 0.33 mcg/kg/min, 35.363 mls/hr Vasopressin/Sodium Chloride (Vasostrict/Ns Ivpb) 20 unit in 100 mls @ 9 mls/hr IV .Q11H7M PRN; Protocol PRN Reason: PER PROTOCOL Stop: 02/07/25 15:12 Vancomycin HCl (Vancomycin/Water 1250 Mg Ivpb) 250 mls @ 120 mls/hr IV X1 ONE Stop: 01/08/25 17:34 Pharmacy Consult (Vancomycin Pharmacy To Dose 1 Each Each) 1 each IV QDAY EDNA Stop: 02/07/25 15:29 Sodium Chloride (Sodium Chloride Rt Audrey 0.9% 3 Ml Nebu) 3 ml INH PRN PRN PRN Reason: SOLN Stop: 02/07/25 15:02 Discontinued Medications Albuterol (Albuterol Rt 2.5 Mg/0.5 Ml Nebu) 5 mg INH X1 ONE Stop: 01/08/25 15:04 Last Admin: 01/08/25 15:09 Dose: 5 mg Hydrocortisone Sodium Succinate (Hydrocortisone Sod Succ Inj 100 Mg 2 Ml Vial) 50 mg IV X1 ONE Stop: 01/08/25 15:15 Last Admin: 01/08/25 15:33 Dose: 50 mg Lactated Ringer's (Lactated Ringers) 1,000 mls @ 999 mls/hr IV .Q1H1M ONE Stop: 01/08/25 13:04 Last Admin: 01/08/25 12:37 Dose: Not Given Norepinephrine/Dextrose (Levophed In D5w 8mg/250ml) 8 mg in 250 mls @ 5.358 mls/hr IV .Q24H PRN; Protocol PRN Reason: PER PROTOCOL Stop: 02/07/25 12:10 Sodium Chloride (Ns) 1,000 mls @ 999 mls/hr IV .Q1H1M ONE Stop: 01/08/25 13:40 Last Infusion: 01/08/25 13:08 Dose: Infused Meropenem 1,000 mg/ Sodium (Chloride) 50 mls @ 100 mls/hr IV X1 ONE Stop: 01/08/25 15:22 Last Admin: 01/08/25 16:05 Dose: 100 mls/hr Sodium Bicarbonate (Sodium Bicarb Inj 8.4% Syr 50 Ml Syringe) 50 ml IV X1 ONE Stop: 01/08/25 13:30 Last Admin: 01/08/25 13:43 Dose: 50 ml Assessment & Plan Plan Jostin is a 54 y/o male with PMHx of ALS, HFrEF (? EF ~10%), cardiac arrest, DVT of upper extremity, pulmonary embolus, Afib (was on Eliquis), respiratory failure s/p trachestomy, PEG placement, CVA (L MCA), bedbound who comes in for evaluation after being sent from [place] to [facility] subacute for Shortness of Breath. Patient found to have large acute hemorrhagic infarct in distribution of left MCA, ER was informed, decision was made to transfer to higher level of care. Family was updated and provided consent for transfer and for neurosurgical intervention at [facility]. Neurology #acute hemorrhagic infarct #hx CVA #altered mental status After paper chart review, patient started on apixaban 12/15 for treatment of LUE DVT at [facility] after being sent there for acute onset of shortness of breath being complicated by sudden cardiac arrest. 12/16 patient was alert and oriented and able to follow commands. Patient found to have L frontal and temporal stroke on Head CT 12/18, apixaban held. CTA head done 12/19 showing occlusion of the crvical L ICA. MRI of the brain showed Large acute/recent infarcts involving both the L ISH and L MCA with early gyral swelling. Was noted to have R hemineglect. 12/24 apixaban resumed. At [facility], patient was found to be GCS 3t with pinpoint pupils, mechanically ventilated, found to have acute hemorrhagic infarct. Dx: -Head CT signficant for Large acute hemorrhagic infarct in distribution L MCA; Edema in particular is prominent in the left frontal lobe Rx: -Reccomend acute neuro transfer/care. -Recommend appropriate temperature management -Recommend discontinuing any blood thinners given acute hemorrhagic infarct Other problems #Hx of ALS Patient has a history of ALS; no recommendations regarding this currently. Cardiovascular #Septic Shock #Hypotension On paper chart review from [place], Patient needing pressors 12/13 after cardiac arrest event on 12/11. Weaned off of all pressors on 12/14. After CVA on 12/18, patient remained relatively stable, but worsening leukocytosis was noted to be starting 12/23 and was put on ABX. Patient was noted to be going into septic shock on 01/01. Antibiotics were adjusted to due to pseudomnas growth on sputum cx from 12/30. -On arrival to [facility], Patient was hypotensive 60s/30s. Suspecting distributive shock due to sepsis given patient's hypotension, altered mental status, elevated wbc, elevated procal and history of septic shock from [place] chart review. Patient unlikely in cardiogenic shock after bedside ultrasound of the heart revealed ventricular contractions not consistent with cardiogenic shock also with what looked like some ventricular hypertrophy. Obstructive is on differential given hx of PE & DVT and with elevated D-dimer, complicated by imaging showing small pulmonary emboli with BP improved on Levophed. Rx: -Started Levophed ggt. -Given 1 L IV fluids. -Gave 50 mg hydrocortisone IV x1 -Ordered vasopressin -Gave meropenem 1,000 mg x1, ordered Vancomycin Other problems #HFrEF history #Cardiac Arrest history #Hx of DVT & PE #Afib Paitient has a history of HFrEF, Cardiac arrest, dvt, pe, and afib; no recommendations currently for those problems. Respiratory #Acute hypercarbic respiratory failure s/p trachestomy, mechanically ventilated #Primary Respiratory Acidosis with Secondary Metabolic Alkalosis Per paper chart review, patient was found to have shortness of breath and was mechanically ventilated in early/mid December. Patient then had tracheostomy placed 12/15. At [facility], patient was found to be acidotic on ABG. Dx: -ABG at [facility] pH 7, pCO2 120, pO2 103, HCO3 29 -Chest CTA showing small pulmonary artery emboli in right lower lobe pulmonary artery branches, Hilar lymphadenopathy, Extensive cavitary lesions in both upper lung lobes, Masslike area 7.6 x 5.1 cm in R Lower lung lobe. -CXR showing Extensive bilateral pneumonia, cavitary in the right upper lobe Rx: -Mechanically ventilated, settings adjusted -Gave Bicarb Other problems #Bilateral Pneumonia #Pulmonary Emboli #Cavitary Lesions #Hilar Lymphadenopathy #R lower lung lobe mass 7.6 x 5.1 cm Patient found to have bilateral pneumonia, pulmonary emboli, cavitary lesions, hilar lymphadenopathy, R lower lung lobe mass 7.6 x 5.1 cm; no recommendations currently regarding these problems. GI and F/E/N #PEG Tube Patient has a history of PEG tube; Patient was npo while at [facility] in setting of acute illness. Recommend restarting feeds when appropriate Renal No active problems Heme #Leukocytosis #Normocytic Anemia #D-dimer elevation Likely in the setting of acute illness and acute bleed where patient was noted on imaging to have hemorrhagic infarct with hgb was found to be 6.8 on arrival to ED at [place], 2 pRBC's transfused. Endo No active problems ID No active problems DVT prophylaxis: no (ISO acute hemorrhagic infarct) GI prophylaxis: no Diet: NPO Bonner: yes Lines: Peripherals Drips: Levophed, Vent: no CODE STATUS: Full Code Reason of hospitalization: Shortness of breath Thank you for the consult. We have evaluated the patient and provided our recommendations. Please contact us for further assistance. Patient plan of care was discussed with the attending physician, Dr. Clements & senior resident Dr. Maggie MANCILLA PGY-1
--- NOTE | 2025-01-08 17:53 | PC.CC ---
1704: informed bridge/structure inspection team leader Tara. CD X1 created and transfer packet given to Tara. 1657: [employer] [employer] contacted and accepted. ETA OF 1718 to [place] 1653: Manuel called back for peer to peer between Dr. Patino and Dr Alvarez. Pt accepted. 1641: Received call back from Yeny Burgess, clinical update provided. 1626: Called [facility] to initiate transfer, spoke to Manuel. Pt just discharged from the facility today 1622: received request to transfer for neuro sx for large hemorrhagic infarct in distribution left middle cerebral artery.
--- NOTE | 2025-01-08 17:55 | PC.NURSE ---
REPORT WAS GIVEN TO GRIFFIN PEÑA AT [facility], AND REPORT WAS ALSO GIVEN TO ANTONIA PEÑA FROM [facility] AND WAS HANDED OVER THE LEVOPHED AND THE 2ND UNIT OF PRBC TO CONTINUE TO INFUSED
== END 2025-01-08 18:04 | disposition short-term general hospital (02) ==
PROVIDERS: Specialist; Emergency Provider Family Medicine
DX: I61.9 Nontraumatic intracerebral hemorrhage, unspecified (principal); R94.31 Abnormal electrocardiogram [ECG] [EKG]; R06.02 Shortness of breath; Z75.1 Person awaiting admission to adequate facility elsewhere
CPT/HCPCS: 51702; 36415; 36430; 36600; 70450; 71045; 71275; 80053; 81001; 82803; 83605; 83690; 83735; 84145; 84484; 85025; 85379; 86850; 86900; 86901; 86923; 87040; 87077; 87186; 87205; 87502; 87811; 93005; 94002; 94640; 96365; 96366; 99283; A4649; J1720; J2185; J3490; J7030; J7050; P9016; Q9967